=== PATIENT | male | born 1955 | race Caucasian/White ===

== ENCOUNTER → 2023-05-23 13:00 | Outpatient (REF) | payer OTHER, SELFPAY | LOC: DHVS 13:00 | PROVIDERS: ATTENDING PHYSICIAN Surgery Vascular Surgery | DX: I65.23 Occlusion and stenosis of bilateral carotid arteries (principal); I73.9 Peripheral vascular disease, unspecified | CPT/HCPCS: 93880; 93922; 93925 ==

== ENCOUNTER 2024-03-03 23:39 | Observation (INO) | payer OTHER, SELFPAY ==
[2024-03-03] VITALS (8 sets, daily range): BP systolic 173–196; BP diastolic 64–80
[2024-03-03 21:50] LABS: Glucose - Point of Care 116 mg/dl (70-99)
--- NOTE | 2024-03-03 22:10 | ED.CVA ---
History of Present Illness
General
Chief Complaint: CVA/TIA Symptoms
Time Seen by Provider: 03/03/24 21:50
Onset of Stroke Symptoms
Onset of symptoms known: Yes
Date of onset of symptoms: 03/02/24
History of Present Illness
History of Present Illness:
68-year-old male with prior history of CVA with left visual issues, COPD, hypertension, CAD status post CABG presenting to the emergency department for strokelike symptoms. Medics were called to patient's house after neighbor had checked on the
patient, and patient seemed confused. Per neighbor, she had called the patient this morning that he had mentioned that he was having visual issues last evening, however when he woke up this morning reported that they had resolved. She noticed
earlier in the evening that patient's truck was parked in his bushes which was unusual for him. She called him again and he kept talking about trying to find a battery, nonsensical speech, so she went to go check on him and was concerned about his
confusion, medics called. Patient on arrival without specific complaints. He denies any present visual changes. He denies weakness or numbness to his extremities. He denies chest pain, difficulty breathing, abdominal pain, fever, recent illness.
He admits to not taking any of his medications today. Per medics, noted to be hypertensive
Past History
Past History
ED Past Medical History: HTN, Hypercholesterolemia, Other, Other and Other
ED Past Surgical History: Cardiac and Other
Social History
Tobacco: Former smoker
Alcohol: Chronic alcoholic
Drug: IVDA
Employment: Other
Family History
Family History: Other
Phy Exam
Physical Exam
Physical Exam:
General: Well-appearing, no clinical signs of dehydration, nontoxic and in no acute distress
HEENT: protecting airway, pupils equal and reactive, extraocular movements intact
Neck: appears supple
CV: Normal heart rate, regular rhythm
Resp: No accessory muscle use, no increased work of breathing, lungs clear to auscultation bilaterally
Abd: Soft and non-distended, no tenderness to palpation
Extremities: No deformities, no swelling, no erythema, pulses and sensation intact
Neuro: Chronic visual issues to the left eye. Mild slowness to speech, aphasia. Otherwise no focal deficits
: deferred
Rectal: deferred
Psych: Normal affect
Skin: Intact
NIH Stroke Score
Level of Consciousness: 0 - Alert
LOC questions: 0-Answers both correctly
LOC Commands: 0-Performs both correctly
Best Gaze: 0-Normal
Visual Kay: 1=Partial hemianopia (chronic)
Facial palsy: 0=Normal, symmetrical
Motor - Right Arm: 0=No drift 10 seconds
Scores
NIH Stroke Score
Level of Consciousness: 0 - Alert
LOC Questions: 0-Answers both correctly
LOC Commands: 0-Performs both correctly
Best Horizontal Gaze: 0-Normal
Visual Kay: 1=Partial hemianopia (chronic)
Facial Palsy: 0=Normal, symmetrical
Motor - Right Arm: 0=No drift 10 seconds
Motor - Left Arm: 0=No drift 10 seconds
Motor - Right Le-No drift 5 seconds
Motor - Left Le-No drift 5 seconds
Limb Ataxia: 0-Absent
Sensation: 0-Normal
Best Language: 1-Mild aphasia
Dysarthria: 0-Normal
Extinction and Inattention: 0-No abnormality
Total Score:: 2
Course
Orders/Labs/Results
Orders:
Orders
03/03/24 21:50
CT HEAD STROKE ALERT W/o Cont Urgent
Comment:
Reason For Exam: confusion, aphasia
CT HEAD/NECK ANG STROKE ALERT Urgent
Comment:
Reason For Exam: confusion, apahsia
03/03/24 21:51
Electrocardiogram (*1) Stat
Reason for Study: Other
Other Reason for Exam: neuro symptoms
EKG- Treatment ONCE
03/03/24 21:56
Labetalol HCl [Trandate] 20 mg IV NOW STA
03/03/24 22:00
Flush (0.9% Sodium Chloride) [Flush (Nss)] See Dose Instructions IV PER PROTOCOL
03/03/24 22:15
Consult Neurology [NEUROLOGY CONSULT] Routine
Consulting Provider: Anthony Mari
Was physician already notified: Yes
Reason for consult: change in mental
03/03/24 22:16
Complete Blood Count/With Diff Urgent
Comprehensive Metabolic Panel Urgent
PTT Urgent
Prothrombin Time Urgent
Troponin I Urgent
03/03/24 22:33
Urinalysis Reflex To Culture Urgent
03/03/24 22:44
Clonazepam [Klonopin] 2 mg PO NOW STA
03/03/24 23:23
Admit/Transfer Patient As Directed
Co-Sign Provider:
Level of Care: Observation services
Assign to:: Telemetry
Physician / Group: hospitalist
Diagnosis: TIA
Reason for Telemetry: CVA/TIA
Date to Stop Telemetry: 03/06/24
Time to Stop Telemetry: 11:00
PRN Pain Medication Management As Directed
May give lesser potent ordered pain med per pt: Yes
preference::
Protocol:: Medication orders for pain may be administered in a
manner that supports deferring to patient preference
when the pt is:
- Requesting an ordered lesser potent pain medication.
Least to most potent pain medications are defined
as: acetaminophen < NSAID < tramadol < opioids
(morphine, oxycodone, hydromorphone).
- Requesting a lesser dose of the same medication IF
ORDERED.
- Requesting a less intrusive route of administration
if both routes are prescribed by the provider (PO <
IV).
11/26/24 23:24
Code Status As Directed
Resuscitation Status: Full Code
03/06/24 11:00
DC Protocol for Telemetry ONCE
Abnormal Lab Results
03/03/24 03/03/24
21:49 22:16
Absolute Monos (auto) 0.7 H 10^3/uL
(0.1-0.6)
Creatinine 1.4 H mg/dL
(0.7-1.3)
Glucose 103 H mg/dl
(70-99)
Total Protein 8.6 H g/dl
(6.3-8.2)
Albumin 5.1 H g/dl
(3.5-5.0)
POC Glucose 116 H mg/dl
(70-99)
03/03/24 22:16
03/03/24 22:16
Vital Signs
Initial and Last Documented VS:
Initial Vital Signs
Pulse Resp BP
93 20 196/80
03/03/24 21:48 03/03/24 21:48 03/03/24 21:48
Last Documented Vital Signs
Temp Pulse Resp BP Pulse Ox
99.1 F 80 19 177/73 100
03/03/24 21:49 03/03/24 23:00 03/03/24 23:00 03/03/24 23:00 03/03/24 23:00
MDM/Problems Addressed
MDM/Problems Addressed:
68-year-old male with prior history of CVA with left visual issues, COPD, hypertension, CAD status post CABG presenting for confusion and speech issues. Vital signs on arrival significant for hypertension.
Patient a prehospital stroke alert. On exam, from a neurologic perspective, patient does have chronic left peripheral visual issues which are reported as chronic. Patient is answering questions appropriately, speaking clearly, however is slightly
slow to respond with concern for mild aphasia. NIH stroke scale of a 2. Stroke alert called, however at this time do not feel patient is a tPA candidate. Patient was allegedly having visual issues last evening, so symptoms spanning beyond 4.5
hours. Patient's blood pressure is markedly elevated, so we will control with labetalol. Will discuss with neurology.
22:30 -CT negative. In discussion with neurology, no present indication for tPA. Plan for admission for MRI and blood pressure control. Will also send urinalysis in the setting of confusion. BP slightly improved.
*EKG
Interpreted by ED Provider?: Yes
EKG Intrepretation Date: 03/03/24
EKG Intrepretation Time: 22:40
Interpretation: normal
Heart Rate: 83
Rate: normal
Rhythm: sinus
[place]: normal axis
Interval: normal interval
QRS Pattern: normal QRS
Ischemia: no ischemia
*Critical Care Note
Total Time (30-74mins, 75-104mins- exclusive of procedures): Not Applicable
ED Attending Note
-
Portions of this chart may have been created with voice recognition software.� Occasional wrong word or��sound alike� substitutions may have occurred due to the inherent limitations of voice recognition software.
Discharge Plan
Departure
Patient Disposition: Admit
Date of Disposition: 03/03/24
Time of Disposition: 22:59
Presentation/result/management discussed w/ accepting MD/DO: Hospitalist
Patient with high blood pressure during this ER visit?: Yes
Condition: Fair
Discharge Problem:
Stroke-like symptoms, Confusion
Interventions
Interventions:
*Risk Screen - Suicide Last Done: 03/03/24 22:06
*General Assessment Last Done: 03/03/24 22:19
*Neglect/Abuse Screening Last Done: 03/03/24 22:06
ED- Fall Risk Assessment Last Done: 03/03/24 22:38
*ED COVID-19 Vaccine History Last Done: 03/03/24 22:19
ED- Pulmonary Assessment Last Done: 03/03/24 22:34
ED- Neurological Assessment Last Done: 03/03/24 21:47
ED- Cardiac Assessment Last Done: 03/03/24 22:34
ED Swallowing Screen Last Done: 03/03/24 22:34
[2024-03-03 22:23] LABS: % Basophils 0.7 % (0-2); % Eosinophils 0.3 % (0-6); % Immature Granulocytes 0.1 % (0-0.5); % Lymphocytes 30.4 % (20.5-51.1); % Monocytes 6.3 % (1.7-9.3); % Neutrophils 62.2 % (42.2-75.2); Absolute Basophils 0.1 10^3/uL (0-0.2); Absolute Lymphocytes 3.2 10^3/uL (1.2-3.4); Absolute Monocytes 0.7 10^3/uL (0.1-0.6); Absolute Neutrophils 6.5 10^3/uL (1.4-6.5); Hematocrit 43.1 % (39.0-52.0); Hemoglobin 14.3 g/dL (13.0-18.0); Mean Corp Hgb Conc. 33.2 g/dL (33.0-37.0); Mean Corpuscular Hgb 29.2 pg (27.0-31.0); Mean Platelet Volume 9.5 fL (7.4-10.4); Nucleated Red Blood Cells % 0 % (-); Platelet Count 287 10^3/uL (130-400); Red Cell Dist. Width 13.5 % (11.5-14.5); White Blood Cell Count 10.4 10^3/uL (4.8-10.8)
[2024-03-03] MEDS: TRANDATE 20 MG IV (22:32)
[2024-03-03 22:33] LABS: INR 0.97; PT 13.2 Sec (11.4-14.6)
[2024-03-03 22:34] LABS: APTT 32.5 Sec (23.4-35.0)
[2024-03-03 22:50] LABS: ALT (SGPT) 21 U/L (0-50); AST (SGOT) 27 U/L (17-59); Albumin 5.1 g/dl (3.5-5.0); Alkaline Phosphatase 63 U/L (38-126); Blood Urea Nitrogen 13 mg/dl (9-20); Calcium 9.9 mg/dl (8.4-10.2); Carbon Dioxide 27 mmol/L (22-30); Chloride 100 mmol/L (98-107); Glucose 103 mg/dl (70-99); Potassium 4.2 mmol/L (3.5-5.1); Sodium 142 mmol/L (135-145); Total Bilirubin 0.5 mg/dl (0.2-1.3); Total Protein 8.6 g/dl (6.3-8.2); Troponin I < 0.012 ng/ml; eGFR 54.07
[2024-03-03] MEDS: KLONOPIN 2 MG PO (23:02)
--- NOTE | 2024-03-03 23:02 | HPS.HSE ---
Family Physician
-
Family Physician: NO INTERVIEW UNKNOWN
Chief Complaint
-
CVA/TIA symptoms
History of Present Illness
Patient is a 68-year-old male with past medical history significant for hypertension, PVD, HLD, bilateral carotid stenosis, depression and anxiety who presented to [place] ED for evaluation of acute onset confusion. Patient states that last
evening he acutely became confused of how to change channels on TV and use remote. He went to bed and after getting up he stated he had confusion with batteries in his cell phone. Patient states for past 2-3 weeks he has had difficulty sleeping at
night and has increased his clonazepam by taking and additional half of tablet night. Patient denies any fever, chills, cough, shortness of breath, chest pain, nausea, vomiting, constipation, diarrhea or urinary symptoms.
Medical History
Past Medical History
Past Medical History: Reports Other
Additional Past Medical History:
hypertension
PVD
HLD
bilateral carotid stenosis
depression
anxiety
insomnia
Past Surgical History: Reports Other
Additional Past Surgical History:
hemorrhoidectomy
carotid artery stents
laminectomy
CABG x3
Social History
Tobacco: Smoker (1 pack daily)
Alcohol: Former (states has not had a drink in a year)
Drug: None
Personal: Single
Living: Alone
Employment: Retired
Family History
Family History: Not pertinent
Allergies / Home Medications
Allergies reflects when Allergies were last updated in [facility].
Home Medications with original date entered in [facility]
Allergy/Medication List:
Allergies
Allergy/AdvReac Type Severity Reaction Status Date / Time
fentanyl Allergy Severe double Verified 03/03/24 21:48
vision
erythromycin base Allergy Intermediate makes eyes Verified 03/03/24 21:48
[Erythromycin Base] swell
tramadol Allergy Intermediate pt states Verified 03/03/24 21:48
he felt
'bad'
while
taking
this med
hydrochlorothiazide Allergy Unknown Unknown Verified 03/03/24 21:48
terazosin Allergy Unknown Unknown Verified 03/03/24 21:48
Home Medications
aspirin 81 mg tablet,delayed release 81 mg PO DAILY 30 days 07/16/18
atorvastatin 80 mg tablet 80 mg PO QPM 30 days 07/16/18
clopidogrel 75 mg tablet 75 mg PO DAILY 30 days 07/16/18
omeprazole 20 mg capsule,delayed release 20 mg PO DAILY Gastrointestinal issue 05/24/21
amlodipine 10 mg tablet 10 mg PO DAILY 03/03/24
clonazepam 2 mg tablet 2 mg PO HS 03/03/24
mirtazapine 15 mg tablet 15 mg PO HS 03/03/24
tramadol 50 mg tablet 50 mg PO BID 03/03/24
umeclidinium 62.5 mcg-vilanterol 25 mcg/actuation powdr for inhalation (Anoro Ellipta) 1 ea inhalation R DAILY 03/03/24
Review of Systems
-
History Source: Patient
Constitutional: Reports No Symptoms
EENT: Reports No Symptoms
Respiratory: Reports No Symptoms
Cardiac: Reports No Symptoms
Abdomen/GI: Reports No Symptoms
: Reports No Symptoms
Musculoskeletal: Reports No Symptoms
Skin: Reports No Symptoms
Neurological: Reports Other (confusion)
Endocrine: Reports No Symptoms
Hematologic/Lymphatic: Reports No Symptoms
Psych: Reports No Symptoms
Physical Exam
Vital Signs
Vital Signs
Temp Pulse Resp BP Pulse Ox
99.1 F 80 19 177/73 100
03/03/24 21:49 03/03/24 23:00 03/03/24 23:00 03/03/24 23:00 03/03/24 23:00
Physical Exam
General: Well Developed, Well Nourished, No Apparent Distress, Comfortable and Conversant
HEENT: NormoCephalic, Moist mucous membranes, Atraumatic, [place] Conjunctivae, Nose Appears Normal, Ears Appear Normal and Other (chronic left eye peripheral vision deficit )
Respiratory: Clear and Non Labored Respirations
Cardiac: S1/S2 and Regular Rhythm; No Murmur, Rub or Gallop
Breast: Deferred by me
GI: Soft, Non Tender, Non Distended and Normal Bowel Sounds; No Organomegaly
Rectal: Deferred by Provider
Genito-urinary: Deferred by me
Musculoskeletal: No Clubbing, No Cyanosis and No Edema
Skin: Warm and IV/Catheter Site; No Rash
Neuro: Awake, Alert, Oriented (x2 (some confusion to time)), Nonfocal/grossly intact and Other (patient slow to respond, some confusion observed)
Psych: Calm and Confused
Laboratory Results
-
03/03/24 22:16
03/03/24 22:16
Laboratory Results
PT 13.2 Sec (11.4-14.6) 03/03/24 22:16
INR 0.97 03/03/24 22:16
APTT 32.5 Sec (23.4-35.0) 03/03/24 22:16
Total Bilirubin 0.5 mg/dl (0.2-1.3) 03/03/24 22:16
AST 27 U/L (17-59) 03/03/24 22:16
ALT 21 U/L (0-50) 03/03/24 22:16
Alkaline Phosphatase 63 U/L (38-126) 03/03/24 22:16
Troponin I < 0.012 ng/ml 03/03/24 22:16
Data Reviewed
-
CT Scan: Report Reviewed by me (Head: No acute intracranial hemorrhage. Stable large old right medial temporal lobe and right occipital lobe CVA with encephalomalacia. Head CTA: see report)
Medical Tests (Nuc Med, Echo, EKG etc): Report Reviewed by me (EKG: NORMAL SINUS RHYTHM POSSIBLE ANTEROSEPTAL INFARCT , AGE UNDETERMINED)
Lab Data: Labs Reviewed by me
Impression/Plan
-
IMPRESSION/PLAN:
#CVA/TIA verse confusion r/t poor sleep hygiene verse infectious process
Acute onset confusion yesterday evening continued into today
described difficulty sleeping past 2-3 weeks
- Admit to Tele
- Consult Neuro
- MRI in AM
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
- Neuro checks
- NIH
#benign hypertension
BP 177/73
- continue amlodipine
#PVD
#HLD
#bilateral carotid stenosis
- continue atorvastatin, clopidogrel
#depression
#anxiety
#insomnia
- continue clonazepam and mirtazapine
#nicotine dependency
pack a day smoker
#alcohol dependency
reports no drink in over a year
history of ETOH withdraw seizure
- MSAS score
- monitor for withdraw symptoms
Full Code
DVT Prophylaxis: Lovenox sq
[2024-03-04] VITALS (7 sets, daily range): BP systolic 135–168; BP diastolic 63–83; BMI 24.1
--- NOTE | 2024-03-04 00:19 | W.PN.UPDATE ---
Update Note
Progress Note Update
Patient seen in conjunction with ISAAC. I agree with the findings on history and physical. I concur with the assessment and plan as stated.
This is a 68-year-old who has a past medical history of CAD status post CABG, carotid stenosis status post bilateral stenting, CVA without any residual deficits who presents to the emergency department with approximately 1 day of ongoing confusion.
Patient reported that he noted difficulty walking his remote control and the TV the previous night. He had otherwise been in usual state of health up until then. He reports that he went to sleep and then woke up and still was somewhat confused.
He had trouble walking his phone trying to dial numbers and also trying to change the batteries on his forms. He denied any other symptoms such as blurry vision or double vision. He denies any numbness or tingling. He denies any weakness. Denies
any urinary symptoms. He denies any changes in medication. He has been taking increased dose of clonazepam to try to sleep at night but otherwise denies any other changes. Patient reports smoking, says his last drink was over a year ago. He
denies any changes in appetite. He denies any recent falls.
On arrival in the ED he was still confused without any other focal neurological deficits. Not a candidate for TNK.
Temp was 99.1, blood pressure was elevated at 188/80 with a pulse of 77 satting 98% on room air. ECG showed normal sinus rhythm with first-degree AV block. Troponin was negative. CT of the head shows no new changes. Old right temporal and
occipital CVA noted. 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
Assessment and plan
Patient with history of CVA, carotid stenosis status post stenting on aspirin Plavix statin presenting to the ED with 1 day of confusion. Still symptoms slightly confused but alert oriented x 3 currently. He has no focal neurological deficits. CT
of the head and CTA shows no acute abnormalities. Patient's labs shows no acute metabolic changes.
Will admit to telemetry, MRI in the morning, continue aspirin Plavix statin, check UA, TSH, B12, ESR, cardiovascular panel in AM. Neuroconsult.
Hypertension, continue his home regimen of amlodipine and monitor.
Patient noncompliant with CPAP takes clonazepam for sleep and tramadol for pain. Cannot rule out polypharmacy causing the confusion. Will monitor for now hold tramadol.
DVT PPX - lovenox sq
Code status - full code
--- NOTE | 2024-03-04 00:54 | PTCARENOTE ---
Pt arrived to room 419-02. Pt ambulated from stretcher to bed with standby assistance. Pt AAOx3, VSS. PPt with some confused speech. Pt oriented to room, call luevano placed within reach. Bed alarm placed.
--- NOTE | 2024-03-04 01:00 | PTCARENOTE ---
Pt refuses CPAP overnight. 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 No further orders.
--- NOTE | 2024-03-04 06:15 | DOWNTIME ---
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 Downtime documentation of patient's care, including medication administrations, has been reconciled in the electronic record per guidelines. Refer to the
patient's paper chart under the miscellaneous tab to see printed paper medication records and downtime forms.
[2024-03-04 07:49] LABS: Urine Albumin Negative (Neg - Trace); Urine Bilirubin Negative (Negative); Urine Character Clear (Clear); Urine Color Yellow; Urine Glucose Negative (Negative); Urine Ketone Negative (Negative); Urine Leukocyte Negative (Negative); Urine Nitrite Negative (Negative); Urine Occult Blood Negative (Negative); Urine Urobilinogen Negative (Neg - 1+)
--- NOTE | 2024-03-04 08:22 | CON.NEURO ---
Neuro Assessment/Plan
Assessment
Recurrent events of changes in mental status beginning in 2021 chronic right occipital stroke and some noncompliance with therapy.
Differential diagnosis includes in this patient includes medication overdose in the form of excessive clonazepam dosing accidentally, seizure, metabolic disturbance and very unlikely stroke based on the patient not experiencing additional focal
features currently compared with examination in 2021
Plan
patient declines therapy for PTSD which would lead to improved sleep, less likely possible side effects from the use of clonazepam
patient declines CPAP therapy for known obstructive sleep apnea
no indication for MRI based on identical symptoms which were not associated with recurrent stroke previously
Obtain EEG as the patient has had recurrent events
Smoking cessation advocated
Continue aspirin
Continue atorvastatin
Provide medical educational materials
Case management as the patient may not be able to utilize his medications appropriately without supervision
Will follow pending results and as outpatient
Consultation
Order
Date of Consultation: 03/04/24
Requesting Provider: Hospitalists
Reason for Consult: Change in mental status
Subjective/Objective
Subjective Data
Date of Service: March 04, 2024
Adapted from my esteemed colleague's consultation:
'DATE/TIME OF CONSULTATION: 05/25/2021 1100
Reason for Consultation: Concern for TIA or new ischemic stroke
This is a 65 year old right handed male who has presented to the hospital with acute confusion and difficulty with word finding
65-year-old right-handed man with a past medical history of previous right SURFACE RO[employer]IC[employer] stroke, coronary artery disease, bilateral carotid artery stents, coronary artery disease status post CABG presented to hospital with some confusion noted by his neighbor
and feeling off starting around 5 PM yesterday in the afternoon. Patient said that he did do some self weaning off of Klonopin and Buspar over past couple weeks. He says that he cannot sleep without the Klonopin general and that usually he will
sleep for about 6 hours and then go back to bed for several hours in the afternoon from about 11 AM to perhaps three or 4 PM daily. Says he did have a diagnosis of sleep apnea but has been intolerant to CPAP.
Patient says that he was talking to his neighbor and explaining some of the medications and that they were complicated seem confusing when the neighbor urged him to go to the emergency room as he seems somewhat confused. Patient said that he felt
somewhat off since about 5 PM earlier but was able to speak and express words and understand words no dysarthria weakness at that time. He presents to the ER with intact neurologic examination and had no acute findings on CT or CTA head and neck.
Neurologic examination today shows a patient is awake alert with intact attention, short-term memory is impaired but he gets 4/5 objects with hints after 5 minutes but 0 out of 5 spontaneously, able to name 12 words starting to letter F in 1 minute,
normal speech and language function, cranial nerves and motor examination.
Reviewed CT head and CTA head and neck, chronic right SURFACE [employer] infarction, bilateral patent carotid stents with mild in-stent stenosis on the left ICA which appears similar to previous examination.
MRI of the brain is negative for acute infarction shows a chronic right SURFACE RO[employer] infarction
Assessment
I think this is unlikely to be a TIA the features do not sound like an aphasia and there is an other winkler any focality to the presentation to suggest an acute focal neurologic deficit. I do think that he may have some degree of depression and his
sleep apnea and sleeping schedule is probably contributing to some degree of cognitive issue for him.
Recommendations
May be helpful to pursue therapy and pharmacologic management for degree of depression
Check routine labs including B12, B1, folate, TSH to could contribute to cognitive issues and fatigue
Consider follow-up with outpatient sleep specialist to see if there are other options the type of CPAP mask as he did not find it tolerable
Continue on current medication regimen with DAPT and atorvastatin'
~~~~
For this admission:
'I guess this was just the same as last time.'
'I was just a little confused.'
Bedtime 22:00, recurrent event with resolution the following AM upon awakening ~ 09:00. Patient is able to provide some details regarding the event. Patient subsequently presented to this hospital's emergency department for further evaluation and
treatment. He suggests that his symptoms of being confused spontaneously resolved after an unclear timeframe.
Not aware of additional symptomatology. No known modifying factors with exception of the patient admitting that he took more of his usual clonazepam than usual.
Objective Data
Vital Signs
Temp Pulse Resp BP Pulse Ox
36.6 C 93 18 159/77 99
03/04/24 04:00 03/04/24 04:00 03/04/24 04:00 03/04/24 04:00 03/04/24 04:00
Lab Results
03/03/24 22:16
PT 13.2 Sec (11.4-14.6) 03/03/24 22:16
INR 0.97 03/03/24 22:16
APTT 32.5 Sec (23.4-35.0) 03/03/24 22:16
Sodium 142 mmol/L (135-145) 03/03/24 22:16
Potassium 4.2 mmol/L (3.5-5.1) 03/03/24 22:16
BUN 13 mg/dl (9-20) 03/03/24 22:16
Glucose 103 mg/dl (70-99) H 03/03/24 22:16
Calcium 9.9 mg/dl (8.4-10.2) 03/03/24 22:16
Patient Allergies
fentanyl Allergy (Severe, Verified 03/03/24 21:48)
double vision
erythromycin base [Erythromycin Base] Allergy (Intermediate, Verified 03/03/24 21:48)
makes eyes swell
tramadol Allergy (Intermediate, Verified 03/03/24 21:48)
pt states he felt 'bad' while taking this med
hydrochlorothiazide Allergy (Unknown, Verified 03/03/24 21:48)
Unknown
terazosin Allergy (Unknown, Verified 03/03/24 21:48)
Unknown
Review of Systems
-
History Source: Patient
All other systems: Reviewed and negative
Physical Exam
-
General: No Apparent Distress and Appears Stated Age
Eyes: OU Absent Papilledema, Round OU, [place] Conjunctivae and No Ptosis
HEENT: Anicteric and Moist Mucous Membranes
Neck: Full Range of Motion
Respiratory: No Dyspnea
Cardiac: No JVD
GI: Non-distended
Skin: Unremarkable
Extremities: No Clubbing, No Cyanosis and No Edema
Psych: Negative Intact Judgement/Insight
Extended Neurological Exam
Mood & Affect: Negative Affect Unremarkable (Irritable)
Attention Span & Concentration: Awake, Alert, Interactive and No Difficulty with 2 Step Request
Memory: Unremarkable
Tremor: Hand Tremor Absent and Head Tremor Absent
Speech: Quality Unremarkable and Quantity Unremarkable
Cranial Nerve II: Left Eye: Pupillary Reactivity Unremarkable, Pupillary Size Unremarkable and Visual Kay Reduced (L homonymous hemianopsia)
Cranial Nerve II: Right Eye: Pupillary Reactivity Unremarkable, Pupillary Size Unremarkable and Visual Kay Reduced (L homonymous hemianopsia)
Cranial Nerves III, IV, : Extraocular Movement: Extraocular Movement Full in all Directions
Cranial Nerve VII: Facial Symmetry: Normal Facial Symmetry
Cranial Nerve VIII: Hearing: Unremarkable Hearing to Normal Conversational Volume
Cranial Nerves IX, X: Palate Movement: Palate Elevation Symmetric
Cranial Nerve XI: Shoulder Shrug: Unremarkable
Cranial Nerve XII: Tongue Protusion: Midline
Muscle Strength, Overall: Full Throughout
Muscle Bulk & Tone: Bulk Unremarkable and Tone Unremarkable
Pronator Drift: No Drift in Upper Extremities and No Drift in Lower Extremities
Deep Tendon Reflexes: Unremarkable Throughout
Touch Sensation: Unremarkable and Double Simultaneous Stimulation Unremarkable
Coordination: Fshaln-zbbo-dwsesg Testing Unremarkable
Babinski Sign: Absent Bilaterally
Data Reviewed
-
CT Head: Report Reviewed
Labs: Report Reviewed
Reviewed with: Physician, Patient and Other
Old Records: Summarized
Medications
-
Active Medications
Generic Name Dose Route Start Last Admin
Trade Name Freq PRN Reason Stop Dose Admin
Acetaminophen 650 mg 03/03/24 23:46
Acetaminophen 650 Mg Rectal Suppository RECTAL 03/31/24 23:45
Q4HPRN PRN
MICHELLE, mild pain, or temp >100.4F
Acetaminophen 650 mg 03/03/24 23:46
Acetaminophen 325 Mg Tablet PO 03/31/24 23:45
Q4HPRN PRN
MICHELLE, mild pain, or temp >100.4F
Amlodipine Besylate 10 mg 03/04/24 08:00
Amlodipine 10 Mg Tablet PO 04/01/24 07:59
DAILY FRANCISCO
Aspirin 81 mg 03/04/24 08:00
Aspirin 81 Mg (Enteric Coated) Tablet PO 04/01/24 07:59
DAILY FRANCISCO
Atorvastatin Calcium 80 mg 03/04/24 18:00
Atorvastatin (Lipitor) 80 Mg Tablet PO 04/01/24 17:59
QPM FRANCISCO
Clonazepam 2 mg 03/04/24 22:00
Clonazepam 1 Mg Tablet PO 04/01/24 21:59
HS FRANCISCO
Clopidogrel Bisulfate 75 mg 03/04/24 08:00
Clopidogrel 75 Mg Tablet PO 04/01/24 07:59
DAILY FRANCISCO
Enoxaparin Sodium 40 mg 03/04/24 18:00
Enoxaparin Sodium 40 Mg/0.4 Ml Syringe SC 04/01/24 17:59
QPM FRANCISCO
Magnesium Hydroxide 30 ml 03/03/24 23:46
Milk Of Magnesia 30 Ml Cup PO 03/31/24 23:45
HSPRN PRN
constipation
Mirtazapine 15 mg 03/04/24 22:00
Mirtazapine 15 Mg Regular Release Tablet PO 04/01/24 21:59
HS FRANCISCO
Olodaterol 2 puff 03/03/24 08:00
Olodaterol (Striverdi Respimat) 2.5 Mcg Inhaler INH 03/31/24 07:59
R DAILY FRANCISCO
Pantoprazole Sodium 40 mg 03/04/24 08:00
Pantoprazole 40 Mg Delayed Release Tablet PO 04/01/24 07:59
DAILY FRANCISCO
Sodium Chloride 0 flush 03/03/24 22:00
Sodium Chloride 0.9% (Flush) Syringe IV 03/31/24 21:59
PER PROTOCOL FRANCISCO
Tiotropium [place] 2 puff 03/04/24 08:00
Tiotropium (Spiriva Respimat) 2.5 Mcg Inhaler INH 04/01/24 07:59
R DAILY FRANCISCO
Tramadol HCl 50 mg 03/04/24 08:00
Tramadol Hcl 50 Mg Tablet PO 04/01/24 07:59
BID FRANCISCO
Home Medications
�Medication �Instructions �Recorded
aspirin 81 mg tablet,delayed 81 mg PO DAILY 30 days 07/16/18
release
atorvastatin 80 mg tablet 80 mg PO QPM 30 days 07/16/18
clopidogrel 75 mg tablet 75 mg PO DAILY 30 days 07/16/18
omeprazole 20 mg capsule,delayed 20 mg PO DAILY Gastrointestinal 05/24/21
release issue
amlodipine 10 mg tablet 10 mg PO DAILY 03/03/24
clonazepam 2 mg tablet 2 mg PO HS 03/03/24
mirtazapine 15 mg tablet 15 mg PO HS 03/03/24
tramadol 50 mg tablet 50 mg PO BID 03/03/24
umeclidinium 62.5 mcg-vilanterol 1 ea inhalation R DAILY 03/03/24
25 mcg/actuation powdr for
inhalation (Anoro Ellipta)
Past History
Past History
ED Past Medical History: COPD (2018), CVA (right parietal/occipital stroke 2018), HTN, Hypercholesterolemia, Psychiatric (major depression, PTSD), Other (insomnia with benzo. dependence, OLEKSANDR, Hep C with treatment 1998, gastric ulcer, chronic low
back pain), Other (Erectile dysfunction, arterial insufficiency) and Other; Negative Renal failure (CKD stage III AA)
ED Past Surgical History: Cardiac (CABGx3), Orthopedic (laminectomy) and Other (bilateral ICA stents, hemorrhoidectomy)
Social History
Tobacco: Smoker
Alcohol: Chronic alcoholic
Drug: IVDA
Personal: Single
Living: alone
Employment: Other
Family History
Family History: Other (Reviewed and noncontributory)
[2024-03-04] MEDS: STRIVERDI RESPIMAT 2 PUFF INH (08:27)
[2024-03-04] MEDS: SPIRIVA RESPIMAT 2.5 MCG 2 PUFF INH (08:28)
--- NOTE | 2024-03-04 09:06 | W.PN.HOSP.TC ---
Addendum entered and electronically signed by Art Hu DO 03/04/24 13:07:
I spoke with neurology, Dr. Mari. He does not recommend MRI of the brain as noted in his progress note. EEG ordered.
I had a long discussion with the patient's power of health care attorney who happens to be his neighbor, Seema.
We discussed the importance of tapering off benzodiazepines and avoiding sedatives such as tramadol. Especially in light of his age and underlying chronic insomnia, sleep apnea.
Suspect etiology of his acute TME was adverse drug reaction, unclear if he doubled up on his benzodiazepine. Seema notes that he has doubled up on his doses of clonazepam in the past to help with insomnia.
Recommend close outpatient follow-up with his primary care doctor to address the insomnia as well as untreated sleep apnea. Treatment of PTSD and follow-up with psychiatry recommended.
Not safe to use benzodiazepines and opiates long-term especially in light of his underlying OLEKSANDR and insomnia.
Try to discharge later today if stable after EEG.
Original Note:
Today's Communication/Plan
-
Hold tramadol, clonazepam
Brain MRI
Neurology consult
PT/OT
Assessment / Plan
Assessment / Plan
Gen-awake, not fully alert, NAD
HEENT-NC, AT, anicteric, clear oral mm
Neck-supple
CV-reg, no M, +S1/S2
Lungs-clear B/L
Abd-soft, NT, ND
Ext-no edema
Musculoskeletal-no cyanosis, clubbing
Skin-warm and dry
Neuro-grossly non-focal
Psych-calm, cooperative
Acute TME -possibly related to combination of benzodiazepines and opiates. Presentation to the emergency room last night with nonfocal neurologic exam. CT of the head negative for acute disease, does show old stroke in right medial temporal lobe
and right occipital lobe with encephalomalacia.
CTA head and neck without significant pathology.
Await brain MRI. Neurology consulted. Hold tramadol, clonazepam.
History of stroke -2019 after CABG.
CAD/CABG x 3 (2019)- stable.
Essential hypertension -uncontrolled. Resume amlodipine. Unclear why he is not on a beta-nafisa.
Hyperlipidemia -atorvastatin.
Bilateral carotid stenosis -bilateral stents.
PAD
Depression/anxiety
Chronic insomnia -on clonazepam 2 mg at bedtime. Hold for now given presentation with confusion. Follow-up with PCP. Needs improvement on sleep hygiene.
Chronic pain syndrome/chronic opiate dependence
COPD without exacerbation
OLEKSANDR -noncompliant with CPAP.
Hx HCV
Tobacco dependence
Full code
Anticipated Discharge: Within 24 hours
Subjective/Interval History
-
Date of Service: March 04, 2024
Patient seen and examined. No complaints currently.
Objective Data
-
Labs:
Laboratory Results
03/03/24 03/04/24
22:16 08:32
WBC 10.4
Hgb 14.3
Hct 43.1
Plt Count 287
PT 13.2
INR 0.97
APTT 32.5
Sodium 142 Pending
Potassium 4.2 Pending
Chloride 100 Pending
Carbon Dioxide 27 Pending
BUN 13 Pending
Creatinine 1.4 H Pending
Glucose 103 H Pending
Calcium 9.9 Pending
Total Bilirubin 0.5
AST 27
ALT 21
Alkaline Phosphatase 63
Vital Signs:
Vital Signs
Temp Pulse Resp BP Pulse Ox
97.9 F 93 18 159/77 99
03/04/24 04:00 03/04/24 04:00 03/04/24 04:00 03/04/24 04:00 03/04/24 04:00
I&O
03/03/24 03/04/24 03/05/24
06:59 06:59 06:59
Intake Total 360 / 360
Balance 360 / 360
Review of Systems
-
History Source: Patient
All other systems: Reviewed and negative
[2024-03-04] MEDS: NORVASC 10 MG PO (09:17)
[2024-03-04] MEDS: PLAVIX 75 MG PO (09:17)
[2024-03-04] MEDS: PROTONIX 40 MG PO (09:17)
[2024-03-04] MEDS: ASPIR LOW (ENTERIC COATED) 81 MG PO (09:18)
[2024-03-04 09:25] LABS: Erythrocyte Sed Rate 13 mm/hour (0-20)
[2024-03-04 09:29] LABS: VerifyNow Aspirin 634 ARU
[2024-03-04 11:15] LABS: Blood Urea Nitrogen 12 mg/dl (9-20); Calcium 9.6 mg/dl (8.4-10.2); Carbon Dioxide 29 mmol/L (22-30); Chloride 101 mmol/L (98-107); Estimated Creatinine Clearance 58 ml/min; Glucose 88 mg/dl (70-99); HDL Cholesterol 35 mg/dl; LDL Cholesterol, Calculated 128 mg/dl; Magnesium 2.1 mg/dl (1.6-2.3); Potassium 4.5 mmol/L (3.5-5.1); Sodium 140 mmol/L (135-145); Total Cholesterol 192 mg/dl (50-199); Triglyceride 147 mg/dl (10-149); Very Low Density Lipoprotein 29 mg/dl (0-30)
[2024-03-04 11:39] LABS: TSH Reflex To Free T4 1.05 uIU/ml (0.47-4.68)
--- NOTE | 2024-03-04 13:33 | W.DS.TRANS ---
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
-
Discharge Instructions:
Discharge Diagnosis/Procedures Acute confusion
Diet Low Cholesterol,Low Fat
Activity As tolerated
Driving Restrictions Not until seen by your Dr
Bathing Restrictions None
Other Services PT
Instructions:
Stand-Alone Forms:
Changes to Home Medications: No
Discharge Medications:
DC Medications w/original date entered in [facility]
aspirin 81 mg tablet,delayed release 81 mg PO DAILY 30 days 07/16/18
atorvastatin 80 mg tablet 80 mg PO QPM 30 days 07/16/18
clopidogrel 75 mg tablet 75 mg PO DAILY 30 days 07/16/18
omeprazole 20 mg capsule,delayed release 20 mg PO DAILY Gastrointestinal issue 05/24/21
amlodipine 10 mg tablet 10 mg PO DAILY Blood Pressure 03/03/24
clonazepam 2 mg tablet 2 mg PO HS Mental Health/Anxiety 03/03/24
mirtazapine 15 mg tablet 15 mg PO HS Mental Health/Anxiety 03/03/24
tramadol 50 mg tablet 50 mg PO BID Pain 03/03/24
umeclidinium 62.5 mcg-vilanterol 25 mcg/actuation powdr for inhalation (Anoro Ellipta) 1 ea inhalation R DAILY COPD 03/03/24
Home Medication Changes
Pending Results: No
--- NOTE | 2024-03-04 14:51 | EEG.RPT ---
Electroencephalogram Report
Recording
Date of EE03/04/24
Type of EEG: Routine
Length of EEG recordin minutes
Done with Video Recording: Yes
Patient Status: Inpatient
Recording Conditions: Awake and Drowsy
Hyperventilation Performed: No
Photic Stimulation Performed: Yes
Report
LESS THAN 1 HOUR EEG INTERPRETATION:
Unremarkable EEG for age
CLINICAL CORRELATION:
A normal EEG does not rule out a diagnosis of epilepsy. If clinical suspicion for seizure persists, a prolonged recording may be warranted.
Clinical correlation is advised.
METHODS:
A 21 channel digitized electroencephalogram (EEG) was performed using the 10/20 international system of electrode placement and one-lead of ECG recorded. The [employer] quantitative EEG system was utilized.
ELECTROENCEPHALOGRAPHER IMPRESSION(S):
Quality of study
Good
Background
There was an unremarkable anterior-posterior voltage gradient of alpha frequency.
With eye opening the background activity changed to a low voltage mixture of frequencies.
There were no significant asymmetries of background activity noted.
Sleep
Drowsiness present
Photic Stimulation
No activation
ECG
Normal sinus rhythm
--- NOTE | 2024-03-04 15:30 | CM ---
Addendum entered by Mattie Wong 03/04/24 15:33:
Cm discussed PT recommendation of outpatient PT, patient not interested at this time, CM relayed script it patient chart if patient changes mind.
Original Note:
Patient seen bedside, initial assessment completed. Patient resides independently in a multiple story home, two steps to enter, mostly resides on first floor. Patient denies DME, VN, or SNF history. Patient PCP Ken Bolanos, pharmacy [facility]
[place], confirms prescription coverage. Patient denies insecurities at home. MADRIGAL reviewed, refused to sign, placed in chart, provided with copy. Patient confirms transportation home. CM will continue to follow for all discharge planning needs.
Plan; home with script for outpatient PT.
== END 2024-03-04 16:48 | disposition home or self-care (01) ==
LOC: 4 WEST ACU 23:39
PROVIDERS: ADMITTING PHYSICIAN Internal Medicine; ATTENDING PHYSICIAN Hospitalist; CONSULT PHYSICIAN Psychiatry & Neurology Neurology; EMERGENCY PHYSICIAN Student in an Organized Health Care Education/Training Program
DX: G92.8 Other toxic encephalopathy (principal); R41.0 Disorientation, unspecified; J44.9 Chronic obstructive pulmonary disease, unspecified; I25.10 Atherosclerotic heart disease of native coronary artery without angina pectoris; I10 Essential (primary) hypertension; E78.00 Pure hypercholesterolemia, unspecified; R47.01 Aphasia; F10.21 Alcohol dependence, in remission; F19.10 Other psychoactive substance abuse, uncomplicated; I73.9 Peripheral vascular disease, unspecified; I65.23 Occlusion and stenosis of bilateral carotid arteries; F51.04 Psychophysiologic insomnia; G47.33 Obstructive sleep apnea (adult) (pediatric); F43.10 Post-traumatic stress disorder, unspecified; G89.4 Chronic pain syndrome; G93.89 Other specified disorders of brain; F32.A Depression, unspecified; F41.9 Anxiety disorder, unspecified; H53.9 Unspecified visual disturbance; M50.321 Other cervical disc degeneration at C4-C5 level; M50.322 Other cervical disc degeneration at C5-C6 level; M50.323 Other cervical disc degeneration at C6-C7 level; R94.31 Abnormal electrocardiogram [ECG] [EKG]; J98.11 Atelectasis; F17.210 Nicotine dependence, cigarettes, uncomplicated; Z86.73 Personal history of transient ischemic attack (TIA), and cerebral infarction without residual deficits; Z88.1 Allergy status to other antibiotic agents; Z95.1 Presence of aortocoronary bypass graft; Z88.5 Allergy status to narcotic agent; Z88.8 Allergy status to other drugs, medicaments and biological substances; Z79.82 Long term (current) use of aspirin; Z79.02 Long term (current) use of antithrombotics/antiplatelets; Z79.51 Long term (current) use of inhaled steroids; Z91.198 Patient's noncompliance with other medical treatment and regimen for other reason; Z91.199 Patient's noncompliance with other medical treatment and regimen due to unspecified reason; Z87.11 Personal history of peptic ulcer disease; Z95.5 Presence of coronary angioplasty implant and graft; Z60.2 Problems related to living alone
CPT/HCPCS: 70450; 70496; 70498; 80048; 80053; 80061; 81003; 82962; 83735; 84443; 84484; 85025; 85576; 85610; 85652; 85730; 93005; 94640; 95816; 96374; 97162; 99285; 99406; G0378; Q9967

== ENCOUNTER → 2024-06-15 14:20 | Outpatient (REF) | payer OTHER, SELFPAY | LOC: RAD 14:20 | PROVIDERS: ATTENDING PHYSICIAN Internal Medicine Cardiovascular Disease; FAMILY PHYSICIAN Nurse Practitioner Adult Health; REFERRING PHYSICIAN Student in an Organized Health Care Education/Training Program | DX: I65.23 Occlusion and stenosis of bilateral carotid arteries (principal) | CPT/HCPCS: 93880 ==

== ENCOUNTER 2024-06-24 06:19 | Day surgery (SDC) | payer OTHER, SELFPAY | END 2024-06-24 14:57 | disposition home or self-care (01) | LOC: GI 06:19 | PROVIDERS: ATTENDING PHYSICIAN Internal Medicine Gastroenterology | DX: Z12.11 Encounter for screening for malignant neoplasm of colon (principal); K57.30 Diverticulosis of large intestine without perforation or abscess without bleeding; K64.8 Other hemorrhoids; D12.5 Benign neoplasm of sigmoid colon; K63.5 Polyp of colon; Z86.0100 Personal history of colon polyps, unspecified | CPT/HCPCS: 45380; 88305 ==

== ENCOUNTER 2024-07-28 06:19 | Day surgery (SDC) | payer OTHER, SELFPAY ==
[2024-07-21 13:48] LABS: Hematocrit 42.4 % (39.0-52.0); Hemoglobin 14.2 g/dL (13.0-18.0); Mean Corp Hgb Conc. 33.5 g/dL (33.0-37.0); Mean Corpuscular Hgb 28.2 pg (27.0-31.0); Mean Corpuscular Volume 84.1 fL (80.0-94.0); Mean Platelet Volume 9.8 fL (7.4-10.4); Platelet Count 304 10^3/uL (130-400); Red Blood Cell Count 5.04 10^6/uL (4.70-6.10); Red Cell Dist. Width 14.1 % (11.5-14.5)
[2024-07-21 14:01] VITALS: BMI 26.3
--- NOTE | 2024-07-21 15:05 | PTCARENOTE ---
Abnormal ECG from 03/03/[address] Trimble, no further intervention requested.
[2024-07-21 16:03] LABS: Blood Urea Nitrogen 19 mg/dl (9-20); Calcium 9.9 mg/dl (8.4-10.2); Carbon Dioxide 24 mmol/L (22-30); Chloride 104 mmol/L (98-107); Estimated Creatinine Clearance 50 ml/min; Glucose 96 mg/dl (70-99); Potassium 4.6 mmol/L (3.5-5.1); Sodium 142 mmol/L (135-145); eGFR 49.77
[2024-07-28] VITALS (7 sets, daily range): BP systolic 140–163; BP diastolic 62–94; BMI 26.3
[2024-07-28] MEDS: NORMOSOL-R/PLASMALYTE-A 1000 IV (09:15)
[2024-07-28] MEDS: NEOMYCIN ENEMA 1 BOTTLE RECTAL (09:15)
[2024-07-28] MEDS: ROXICODONE 5 MG PO (11:59)
== END 2024-07-28 13:08 | disposition home or self-care (01) ==
LOC: SDS 06:19
PROVIDERS: ATTENDING PHYSICIAN Specialist; FAMILY PHYSICIAN Nurse Practitioner Adult Health
DX: R97.20 Elevated prostate specific antigen [PSA] (principal); N40.0 Benign prostatic hyperplasia without lower urinary tract symptoms; C61 Malignant neoplasm of prostate
CPT/HCPCS: 55700; 36415; 76998; 80048; 85027; 88305

== ENCOUNTER → 2024-09-10 18:36 | Outpatient (REF) | payer OTHER, SELFPAY | LOC: MRI 3T 18:36 | PROVIDERS: ATTENDING PHYSICIAN Specialist; FAMILY PHYSICIAN Nurse Practitioner Adult Health | DX: C61 Malignant neoplasm of prostate (principal) | CPT/HCPCS: 72197; A9575 ==

== ENCOUNTER → 2024-10-02 15:49 | Outpatient (REF) | payer OTHER, SELFPAY | LOC: HWRAD 15:49 | PROVIDERS: ATTENDING PHYSICIAN Nurse Practitioner Adult Health; REFERRING PHYSICIAN Specialist | DX: J44.9 Chronic obstructive pulmonary disease, unspecified (principal); R06.09 Other forms of dyspnea | CPT/HCPCS: 71046 ==

== ENCOUNTER → 2025-02-03 11:57 | Outpatient (REF) | payer OTHER, SELFPAY | LOC: HWRAD 11:57 | PROVIDERS: ATTENDING PHYSICIAN Internal Medicine; FAMILY PHYSICIAN Nurse Practitioner Adult Health | DX: N18.31 Chronic kidney disease, stage 3a (principal) | CPT/HCPCS: 76770 ==